=== PATIENT | female | born 1955 | race Caucasian/White ===

== ENCOUNTER → 2016-09-17 | Outpatient (CLI) | payer OTHER ==
--- NOTE | 2016-09-18 06:55 | MM ---
Reason for exam: additional evaluation requested from prior study. Last mammogram was performed 1 year ago. History: Patient is postmenopausal. Family history of breast cancer in mother at age 50. Took estrogen for 3 months beginning at age 49. Physical Findings: Nurse did not find any significant physical abnormalities on exam. MG Diagnostic Mammo w CAD [facility] Bilateral CC and MLO view(s) were taken. Prior study comparison: September 28, 2015, bilateral MG 3d diag mammo w/cad [facility]. December 23, 2012, bilateral digital screening mammo w/CAD. There are scattered fibroglandular densities. Finding: There are typically benign vascular calcifications in both breasts. There is a chronic nodularity in the right breast. These results were verbally communicated with the patient and result sheet given to the patient on 09/17/16. ASSESSMENT: Benign, BI-RAD 2 RECOMMENDATION: Routine screening mammogram of both breasts in 1 year. Manage on a clinical basis with regard to bilateral breast pain.
== END | disposition home or self-care (01) ==
LOC: RADMAMWWP 14:51
PROVIDERS: ATTEND Pediatrics
DX: N64.4 Mastodynia (principal)

== ENCOUNTER → 2017-01-14 | Outpatient (CLI) | payer OTHER ==
--- NOTE | 2017-01-14 17:14 | BD ---
EXAMINATION TYPE: MG DEXA axial skeleton. DATE OF EXAM: 01/14/2017 COMPARISON: NONE CLINICAL HISTORY: post menopausal Height: 5'4 1/2 Weight: 175 FRAX RISK QUESTIONS: Alcohol (3 or more units per day): no Family History (Parent hip fracture): no Glucocorticoids (More than 3mos): no (Ex: prednisone, prednisolone, methylprednisolone, dexamethasone, and hydrocortisone). History of Fracture in Adulthood: yes Secondary Osteoporosis: 1. Type 1 Diabetes: no 2. Hyperthyroidism: no 3. Menopause before 45: no 4. Malnutrition: no 5. Chronic liver disease: yes Rheumatoid Arthritis: no Current Tobacco Use: no RISK FACTORS HISTORY OF: Diet low in dairy products/other sources of calcium: Postmenopausal woman: Poor Health: MEDICATIONS: Thyroid Medications: Which medication: Levothyroxine How Lon years Additional Medications: blood pressure, seizures, Additional History: TIA EXAM MEASUREMENTS: Bone mineral densitometry was performed using the [employer] System. Bone mineral density as measured about the Lumbar spine is: ----- L1-L4(G/cm2): 1.105 T Score Values are as follows: ----- L2: -0.2 ----- L3: 0.0 ----- L4: -1.4 ----- L1-L4: -0.6 Bone mineral density about the R hip (g/cm2): 0.889 Bone mineral density about the L hip (g/cm2): 0.910 T Score values are as follows: -----R Neck: -1.1 -----L Neck: -0.9 -----R Total: -0.4 -----L Total: -0.4 IMPRESSION: Osteopenia (T Score between -2.5 and -1 as noted by T score values. There is slightly increased risk of fracture and the patient may be considered for treatment. Re-Screen 2-5 years. NOTE: T-SCORE=SD OF THE YOUNG ADULT MEAN.
--- NOTE | 2017-01-15 08:11 | WWHP ---
CHIEF COMPLAINT: Patient is here for her routine gynecologic exam. HPI: This is a 61-year-old G2, P2 with an LMP of 2006. The patient was seen last year for small amount of postmenopausal bleeding. She did have an endometrial biopsy which was benign and also had a pelvic ultrasound, which showed an endometrial thickness of 5 mm. She states she has not had any postmenopausal bleeding, but did have small spot of blood just prior to today's examination when she urinated. She noticed this just when she wiped. She denies any other vaginal bleeding this year. The patient is complaining of abdominal discomfort and "stomachache" for the last 2 months. She also had problems with constipation. PAST MEDICAL HISTORY: Hypothyroidism, TIA in the past, hepatitis C in the past, mild renal failure, seizure disorder in the past. Her new primary care physician will be Sherrell Read. She is also seeing Trang Wood NP who is working with Dr. Chris the GI specialist. MEDICATIONS: 1. Levothyroxine 75 mcg daily. 2. Clonidine 0.1 mg b.i.d. 3. Clonazepam 0.5 mg t.i.d. 4. Methadone 10 mg t.i.d. ALLERGIES: No known drug allergies. PAST SURGICAL HISTORY: Unchanged from the 2016 H&P. PAST EXTENSION PROFESSOR HISTORY: She has been menopausal since 2005 and has no history of STDs in the past. She did have an endometrial biopsy in 2016 for small spotting. SOCIAL HISTORY: She quit smoking in 2014 and denies any tobacco, alcohol, and drug use. She has been with her boyfriend since about 2000. She is not sexually active. FAMILY HISTORY: Unchanged from the 2016 H&P. REVIEW OF SYSTEMS: She has gained about 25 pounds over the past year and attributes much of this to a water retention. She denies respiratory or cardiac problems. GI: She has been having abdominal pain and constipation as above. PHYSICAL EXAM: Blood pressure 132/83. Height 5 feet 6 inches. Weight 175 pounds. Temperature 98.2, pulse 88. This is a well-developed, well-nourished white female who is alert and oriented x3 in no acute distress. HEENT is within normal limits. NECK: Supple without mass or thyromegaly. CHEST AND LUNGS: Clear to auscultation. HEART: Regular rate and rhythm. Breasts are without mass or discharge. Axillary exam is negative for adenopathy. BACK: Negative for CVA tenderness. ABDOMEN: Has 2+ bowel sounds, is soft and is some mild generalized abdominal tenderness with deep palpation. There is no rebound tenderness and there are no palpable abdominal masses. The abdomen appears mildly distended. PELVIC EXAM: External genitalia reveals moderate atrophy. There is a small scratch on the inner aspect of the left labia minora which appears slightly red consistent with dried blood. There is no active bleeding. This appears benign. There are no other lesions. Cervix and vagina reveals mild to moderate atrophy and there is no evidence of any blood in the vagina and no unusual discharge. The cervix appears normal. There is no cervical motion tenderness. The uterus is midposition, nongravid size and nontender. There are no palpable adnexal masses or tenderness. Rectovaginal exam is negative for mass or tenderness and is negative for occult blood. EXTREMITIES: Nontender. IMPRESSION: 1. A 61-year-old menopausal female with a drop of blood noted just prior to exam with wiping. This appears to be related to a small scratch on the inner labia which appears benign. There is currently no evidence of any vaginal or uterine bleeding. 2. Two month history of abdominal discomfort which may be associated with her constipation. I do not feel that this is gynecologic in nature. 3. The patient does have a history of extra hepatic biliary ductal dilatation with the common bile duct measuring 1.[address] scan done on 02/27/2016. PLAN: 1. Pap smear was deferred, since she had a normal one last year. 2. Self breast examination was discussed. 3. The patient had a benign mammogram on 09/17/2016. This will be repeated in one year. 4. Since I do not feel the abdominal pain is gynecologic in nature I have asked the patient to follow up with her GI doctor and nurse practitioner for follow-up. I have also asked them to discuss the CT scan findings consisting of common bile duct dilatation with Dr. Chris and Trang Wood. She will also discuss her problems with constipation and abdominal discomfort with them as well. 5. Bone density testing will be done today for screening. 6. She was advised to use Neosporin on the area of the scratched inner labia. She was also told to call if she notices any more bleeding. 7. She will return in one year. YESI
== END ==
LOC: WWCWWP 15:19
PROVIDERS: ATTEND Obstetrics & Gynecology
DX: M85.80 Other specified disorders of bone density and structure, unspecified site (principal)
CPT/HCPCS: 77080

== ENCOUNTER → 2017-01-14 | Outpatient (CLI) | payer OTHER ==
[2017-01-14 17:34] LABS: CH 27.9; CHCM 31.9; HCT 39.7 % (34.0-46.0); HDW 2.56; HGB 12.8 gm/dL (11.4-16.0); MCH 28.3 pg (25.0-35.0); MCHC 32.3 g/dL (31.0-37.0); MCV 87.9 fL (80.0-100.0); Mean Platelet Volume 7.2; RBC 4.52 m/uL (3.80-5.40); RDW 13.3 % (11.5-15.5); WBC 4.6 k/uL (3.8-10.6)
[2017-01-14 17:53] LABS: Bilirubin, Delta 0.4 mg/dL (0.0-0.2); Total Bilirubin 0.6 mg/dL (0.2-1.3); Total Protein 8.1 g/dL (6.3-8.2)
[2017-01-16 08:25] LABS: Hepatits C Virus RNA, Quant <12 IU/mL (<12); LOG HCV IU/mL <1.08 (<1.08)
== END ==
LOC: LABWHC1 16:57
PROVIDERS: ATTEND Physician Assistant
DX: B18.2 Chronic viral hepatitis C (principal)
CPT/HCPCS: 36415; 80076; 85027; 87522

== ENCOUNTER → 2017-07-31 | Outpatient (CLI) | payer OTHER ==
--- NOTE | 2017-07-31 09:40 | US ---
EXAMINATION TYPE: US abdomen complete DATE OF EXAM: 07/31/2017 COMPARISON: ct 2016 CLINICAL HISTORY: R10.12 LEFT UPPER QUADRANT PAIN. Pt fell dec 7 cracked ribs pain lug , also chronic hep c EXAM MEASUREMENTS: Liver Length: 15.4 cm Gallbladder Wall: 0.1 cm CBD: 0.8 cm Spleen: 9.2 cm Right Kidney: 9.2 x 3.1 x 3.4 cm Left Kidney: 9.4 x 2.8 x 3.5 cm Pancreas: Obscured by bowel gas Liver: wnl , no discrete masses are evident. Gallbladder: wnl Evidence for sonographic Chua's sign: no CBD: 0.8 cm, enlarged for the patient age. Spleen: wnl Right Kidney: No hydronephrosis or masses seen Left Kidney: lobular difficult to visualize , tried different pt positions Upper IVC: wnl Abd Aorta: wnl IMPRESSION: 1. Large common bile duct measuring 0.8 cm. Normal up to 0.6 cm. 2. Some limitation due to bowel gas and difficulty with patient positioning.
== END | disposition home or self-care (01) ==
LOC: RADUSWWP 08:04
PROVIDERS: ATTEND Internal Medicine Gastroenterology
DX: K83.8 Other specified diseases of biliary tract (principal); R14.3 Flatulence; B18.2 Chronic viral hepatitis C
CPT/HCPCS: 76700

== ENCOUNTER → 2017-08-18 | Outpatient (CLI) | payer OTHER ==
[2017-08-18 16:02] LABS: HCT 39.3 % (34.0-46.0); HGB 12.6 gm/dL (11.4-16.0); MCV 87.5 fL (80.0-100.0); Mean Platelet Volume 8.6; Platelet Count 162 k/uL (150-450); RDW 14.2 % (11.5-15.5); WBC 4.5 k/uL (3.8-10.6)
[2017-08-18 16:07] LABS: Albumin 4.4 g/dL (3.5-5.0); Bilirubin, Delta 0.4 mg/dL (0.0-0.2); Total Bilirubin 0.4 mg/dL (0.2-1.3); Total Protein 7.7 g/dL (6.3-8.2)
[2017-08-19 14:49] LABS: Hepatits C Virus RNA Not detected (Not detected); Hepatits C Virus RNA, Quant <12 IU/mL (<12); LOG HCV IU/mL <1.08 (<1.08)
== END ==
LOC: LABWHC1 15:41
PROVIDERS: ATTEND Physician Assistant
DX: B18.2 Chronic viral hepatitis C (principal)
CPT/HCPCS: 36415; 80076; 82105; 85027; 87522

== ENCOUNTER → 2017-11-19 | Outpatient (CLI) | payer OTHER ==
[2017-11-19 12:45] LABS: Albumin 4.2 g/dL (3.5-5.0); Calcium 9.3 mg/dL (8.4-10.2); Potassium 5.3 mmol/L (3.5-5.1); Total Bilirubin 0.4 mg/dL (0.2-1.3); Total Protein 7.4 g/dL (6.3-8.2)
[2017-11-19 13:03] LABS: HCT 36.1 % (34.0-46.0); MCH 27.9 pg (25.0-35.0); MCHC 33.2 g/dL (31.0-37.0); MCV 84.1 fL (80.0-100.0); Mean Platelet Volume 7.4; Platelet Count 173 k/uL (150-450); RBC 4.29 m/uL (3.80-5.40); RDW 12.6 % (11.5-15.5); WBC 4.6 k/uL (3.8-10.6)
== END | disposition home or self-care (01) ==
LOC: LABWHC1 11:50
PROVIDERS: ATTEND Family Medicine
DX: I15.9 Secondary hypertension, unspecified (principal); F41.9 Anxiety disorder, unspecified; E03.9 Hypothyroidism, unspecified
CPT/HCPCS: 36415; 80053; 80061; 84443; 85027

== ENCOUNTER → 2017-11-28 | Outpatient (CLI) | payer OTHER ==
--- NOTE | 2017-11-28 08:48 | MR ---
EXAMINATION TYPE: MR lumbar spine wo con DATE OF EXAM: 11/28/2017 COMPARISON: CT abdomen and pelvis dated 02-27-2016. HISTORY: Disc Degeneration per order and Pain for 10 years per patient TECHNIQUE: Multiplanar, multisequence imaging of the lumbar spine is performed without IV contrast. FINDINGS: Sagittal images of the lumbar spine redemonstrate chronic moderate compression fracture L1 level. There is slight posterior retropulsion of the superior posterior aspect of vertebra into spina l canal on sagittal image [address] Less prominent scoliotic curvature is seen on MRI v ersus CT. Multilevel disc desiccation is present. There is fairly moderate disc space narrowing L5-S1 level with vacuum disc phenomenon and Modic type II degenerative change with heterogeneous increased T1 and T2 signal. Multilevel posterior disc herniations are seen on sagittal images effacing anterio r thecal sac There is mild to moderate multilevel anterior spurring. The conus medullaris is slightly lower in position ending at superior L2 level without suspicious abnormal signal or clumping of lumb osacral nerve roots. Axial images at T12-L1 level shows mild broad disc bulge mildly effacing anterior thecal sac and axia l image 28, bilateral neural foramina are patent. There is more prominent central canal effacement du e to posterior displacement superior L1 vertebra at level of moderate compression fracture axial imag e 26 redemonstrated. Axial images at L1-L2 level show mild broad disc bulge minimally effacing anterior thecal sac, bilate ral neural foramina are patent. Axial images at L2-L3 level show mild to moderate broad disc bulge and mild facet degenerative change s bilaterally. There is effacement of the anterior posterior lateral thecal sac on axial image 18. Bi lateral neural foramina are patent. Axial images at L3-L4 level show broad-based posterior disc protrusion effacing anterior thecal sac w ith mild to moderate facet degenerative changes and ligament flavum hypertrophy effacing posterior la teral thecal sac. There is mild left-sided anterior inferior neural foraminal narrowing. Right-sided neural foramen is patent. Axial images at L4-L5 level show moderate facet degenerative changes and ligamentum flavum hypertroph y effacing posterior lateral thecal sac. There is broad-based posterior disc protrusion effacing ante rior thecal sac. There is mild bilateral anterior inferior neural foraminal narrowing at this level i dentified. Axial images at L5-S1 level show mild to moderate facet degenerative changes bilaterally. There is br oad-based posterior disc protrusion seen. Spinal canal is minimally effaced. There is mild bilateral anterior inferior neural foraminal narrowing noted. No suspicious retroperitoneal findings are seen. IMPRESSION: Chronic moderate compression type fracture L1 level. Multilevel degenerative changes in t he lumbar spine as detailed above
== END | disposition home or self-care (01) ==
LOC: RADMRIMAIN 07:44
PROVIDERS: ATTEND Family Medicine
DX: M48.07 Spinal stenosis, lumbosacral region (principal); M99.73 Connective tissue and disc stenosis of intervertebral foramina of lumbar region; M51.27 Other intervertebral disc displacement, lumbosacral region; M47.816 Spondylosis without myelopathy or radiculopathy, lumbar region; M48.56XA Collapsed vertebra, not elsewhere classified, lumbar region, initial encounter for fracture
CPT/HCPCS: 72148

== ENCOUNTER → 2017-12-08 | Outpatient (CLI) | payer OTHER | END | disposition home or self-care (01) | LOC: RADBDWWP 13:22 | PROVIDERS: ATTEND Family Medicine | DX: Z53.9 Procedure and treatment not carried out, unspecified reason (principal) ==

== ENCOUNTER 2018-02-19 16:31 | Emergency (ER) | payer OTHER ==
[2018-02-19 18:05] VITALS: TEMP 98.3
--- NOTE | 2018-02-19 18:55 | ED ---
General Adult HPI - General Chief complaint: Extremity Injury, Lower Stated complaint: Rt Knee swelling Time Seen by Provider: 02/19/18 18:15 Source: patient Mode of arrival: wheelchair Limitations: no limitations - History of Present Illness Initial comments: This a 63-year-old female with past medical history of CVA on aspirin and seizure disorder, hypertension who presents today for chief complaint of fall times 3 days ago. Patient states that Friday she was carrying some heavy boxes up stairs when she felt as though her right knee gave out, she fell onto the anterior right knee. Patient denies any posterior or anterior dislocation. Patient really noticed pain in her right knee and swelling. However she just try to walk it off, hoping that better. She put ice on the knee. However she had difficulty ambulating and weightbearing secondary to pain. Patient denies any chest pain, shortness of breath, seizures, dizziness or palpitations prior to falling. And states it was due to her knee giving out. Patient denies any posterior dislocation, numbness, tingling, paresthesias , loss sensation, coolness of the extremity. Patient presented to the emergency department today because she could no longer tolerate the pain and was having difficulty ambulating since the injury. Patient has not taken any pain medication for the knee pain, however she is only taking her daily aspirin. Patient denies any recent fever, chills, shortness of breath, chest pain, back pain, abdominal pain, nausea or vomiting, numbness or tingling, dysuria or hematuria, constipation or diarrhea, headaches or visual changes, or any other complaints. - Related Data Home Medications Medication Instructions Recorded Confirmed L.acidoph,Paracasei, B.lactis 1 tab PO DAILY 12/21/15 07/30/17 [Probiotic] cloNIDine HCL [Catapres] 0.1 mg PO BID 12/21/15 07/30/17 Levothyroxine Sodium [Synthroid] 75 mcg PO DAILY 01/08/16 07/30/17 Multivitamins, Thera [Multivitamin] 1 tab PO DAILY 01/08/16 07/30/17 hydrOXYzine HCL [Atarax] 25 mg PO DIRECTED PRN 01/08/16 07/30/17 clonazePAM [KlonoPIN] 1 mg PO TID 03/03/17 07/30/17 Methadone HCl [Methadone Intensol] 72 mg PO DAILY 07/30/17 Potassium Chloride [K-Tab ER] 20 meq PO DAILY 07/30/17 Sertraline [Zoloft] 100 mg PO DAILY 07/30/17 Spironolactone [Aldactone] 25 mg PO DAILY 07/30/17 Previous Rx's Medication Instructions Recorded Ibuprofen [Motrin] 600 mg PO Q8HR PRN 7 Days #21 tab 02/19/18 Allergies Allergy/AdvReac Type Severity Reaction Status Date / Time No Known Allergies Allergy Verified 07/30/17 09:38 Review of Systems ROS Statement: Those systems with pertinent positive or pertinent negative responses have been documented in the HPI. ROS Other: All systems not noted in ROS Statement are negative. Constitutional: Denies: fever, chills ENT: Denies: ear pain, throat pain Respiratory: Denies: cough, dyspnea, hemoptysis Cardiovascular: Denies: chest pain, palpitations Endocrine: Denies: fatigue Gastrointestinal: Denies: abdominal pain, nausea, vomiting Genitourinary: Denies: urgency, dysuria, frequency Musculoskeletal: Denies: back pain Skin: Denies: rash, lesions Neurological: Denies: headache, weakness, numbness, paresthesias Past Medical History Past Medical History: CVA/TIA, GERD/Reflux, Hypertension, Memory Impairment, Thyroid Disorder Additional Past Medical History / Comment(s): STATES HAD HEP C-"TOOK SOME MEDICATION AND NO LONGER HAS". TINNITUS. TIA 2012. CHRONIC BACK PAIN. 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 COLONOSCOPY. BILAT CATARACT SX Past Anesthesia/Blood Transfusion Reactions: Blood Transfusion Reaction Additional Past Anesthesia/Blood Transfusion Reaction / Comment(s): contracted hep c from blood transfusion 1975 Past Psychological History: Anxiety, Depression Smoking Status: Former smoker - Past Family History Mother Family Medical History: Cancer General Exam - General Exam Comments Initial Comments: General: The patient is awake and alert, in no distress, and does not appear acutely ill. Eye: Pupils are equal, round and reactive to light, extra-ocular movements are intact. No nystagmus. There is normal conjunctiva bilaterally. No signs of icterus. Ears, nose, mouth and throat: There are moist mucous membranes and no oral lesions. Neck: The neck is supple, there is no tenderness or JVD. Cardiovascular: There is a regular rate and rhythm. No murmur, rub or gallop is appreciated. Respiratory: Lungs are clear to auscultation, respirations are non-labored, breath sounds are equal. No wheezes, stridor, rales, or rhonchi. Musculoskeletal: Significant swelling of the right knee in comparison with the left, no overlying erythema, ecchymosis or abrasion. Patient is able to fully active and passively range the right knee however she does complain of mild pain with both passive and active range of motion, no evidence of clicking or crepitus. Patient admits to tenderness to palpation over the anterior aspect of the knee. Strength of knees bilaterally 5/5. Extensor mechanism intact bilaterally. Full sensation of LE equally bilaterally. Pulses equal bilaterally 2+ DP. No increased laxity noted upon anterior or posterior drawer test, or varus/valgus testing. No calf pain. (-) Irvin. There is no calf, foot or below the knee swelling of the right leg and comparison with the left. Neurological: A&O x 3. CN II-XII intact, There are no obvious motor or sensory deficits. Coordination appears grossly intact. Speech is normal. Skin: Skin is warm and dry and no rashes or lesions are noted. Psychiatric: Cooperative, appropriate mood & affect, normal judgment. Limitations: no limitations Course Vital Signs 02/19/18 02/19/18 18:02 20:44 Temperature 98.3 F Pulse Rate 64 65 Respiratory 18 20 Rate Blood Pressure 121/67 166/77 O2 Sat by Pulse 97 98 Oximetry Medical Decision Making - Medical Decision Making X-ray of the right knee was obtained revealing no acute dislocation or fracture , or joint effusion. There was mild osteoarthritis of the right knee. Given the history of trauma & physical examination no overlying erythema or excessive pain with passive, active range of motion, patient is afebrile and patient appearing comfortable and nontoxic I have low suspicion for septic joint. At this time given the patient's history I do feel that this could be a possible ligamentous injury, that needs further evaluation and treatment by orthopedics. Patient was placed in a knee immobilizer. In discharge with prescription for ibuprofen 600 for pain management as needed as well as orthopedist surgery follow-up with Dr. Helms in one to 2 days. The case was discussed in detail with Dr. Easton who agrees with this plan. Patient agreed with plan and was stable for discharge. She stated she was ready to go home. Vital signs stable upon discharge. Disposition Clinical Impression: Right knee pain Disposition: HOME SELF-CARE Instructions: Knee Sprain (ED) Additional Instructions: Please use medication as discussed. Please follow-up with orthjopedic surgery as discussed in 1-2 days. Please return to emergency room if the symptoms increase or worsen or for any other concerns. Prescriptions: Ibuprofen [Motrin] 600 mg PO Q8HR PRN 7 Days #21 tab PRN Reason: Pain Is patient prescribed a controlled substance at d/c from ED?: No Referrals: Jessica Pond MD [Primary Care Provider] - 1-2 days Keyon Reece MD [STAFF PHYSICIAN] - 1-2 days Time of Disposition: 20:17
[2018-02-19] MEDS ORDERED: HYDROcodone/APAP 5-325MG 1 EACH TAB PO STA (18:59)
--- NOTE | 2018-02-19 19:38 | XR ---
EXAMINATION TYPE: XR knee complete RT DATE OF EXAM: 02/19/2018 COMPARISON: NONE HISTORY: Fall. Knee pain. TECHNIQUE: 3 views FINDINGS: There is some narrowing of the medial joint space. There is no fracture nor dislocation. Th ere are small knee joint effusion. IMPRESSION: Mild osteoarthritis. No fracture.
[2018-02-19 20:45] VITALS: BP 166/77; PULSE 65; RESP 20
== END 2018-02-19 20:45 | disposition home or self-care (01) ==
LOC: EC 16:31
DX: M25.561 Pain in right knee (principal); I10 Essential (primary) hypertension; E07.9 Disorder of thyroid, unspecified; F41.9 Anxiety disorder, unspecified; F32.9 Major depressive disorder, single episode, unspecified; Z86.73 Personal history of transient ischemic attack (TIA), and cerebral infarction without residual deficits; Z98.890 Other specified postprocedural states; Z79.899 Other long term (current) drug therapy; W10.9XXA Fall (on) (from) unspecified stairs and steps, initial encounter; Y92.89 Other specified places as the place of occurrence of the external cause; Y93.89 Activity, other specified
CPT/HCPCS: 99283

== ENCOUNTER → 2018-05-08 | Outpatient (CLI) | payer OTHER ==
[2018-05-08 16:47] LABS: Basophils % (A) 0 %; Eosinophils # (A) 0.2 k/uL (0-0.7); Eosinophils % (A) 2 %; HCT 30.6 % (34.0-46.0); HGB 9.8 gm/dL (11.4-16.0); Hypochromasia Slight; Lymphocytes # (A) 1.2 k/uL (1.0-4.8); Lymphocytes % (A) 12 %; MCH 25.2 pg (25.0-35.0); MCHC 32.1 g/dL (31.0-37.0); MCV 78.7 fL (80.0-100.0); Mean Platelet Volume 6.7; Monocytes # (A) 0.7 k/uL (0-1.0); Monocytes % (A) 7 %; Neutrophils # (A) 7.8 k/uL (1.3-7.7); Neutrophils % (A) 77 %; Platelet Count 542 k/uL (150-450); RBC 3.88 m/uL (3.80-5.40); RDW 14.4 % (11.5-15.5); WBC 10.1 k/uL (3.8-10.6)
[2018-05-08 17:02] LABS: Albumin 3.3 g/dL (3.5-5.0); Calcium 9.2 mg/dL (8.4-10.2); Potassium 3.8 mmol/L (3.5-5.1)
[2018-05-08 17:20] LABS: C Reactive Protein 188.4 mg/L (<10.0)
[2018-05-08 18:08] LABS: Erythrocyte Sedimentation Rate 115 mm/hr (0-20)
[2018-05-09 05:07] LABS: Hemoglobin A1C 5.6 % (4.0-6.0)
== END ==
LOC: LABWHC1 16:13
PROVIDERS: ATTEND Orthopaedic Surgery
DX: Z01.812 Encounter for preprocedural laboratory examination (principal); B99.9 Unspecified infectious disease
CPT/HCPCS: 36415; 80048; 82040; 83036; 85025; 85652; 86140; 87070

== ENCOUNTER → 2018-06-10 | Outpatient (CLI) | payer OTHER | END | disposition home or self-care (01) | LOC: LABWHC1 17:19 | PROVIDERS: ATTEND Orthopaedic Surgery | DX: Z01.812 Encounter for preprocedural laboratory examination (principal); Z01.818 Encounter for other preprocedural examination; B99.9 Unspecified infectious disease | CPT/HCPCS: 36415; 87070; 93005 ==

== ENCOUNTER → 2018-06-12 | Outpatient (CLI) | payer OTHER ==
[2018-06-12 13:25] LABS: Basophils % (A) 0 %; Eosinophils # (A) 0.2 k/uL (0-0.7); Eosinophils % (A) 2 %; HCT 28.1 % (34.0-46.0); HGB 8.5 gm/dL (11.4-16.0); Hypochromasia Marked; Lymphocytes # (A) 1.1 k/uL (1.0-4.8); Lymphocytes % (A) 16 %; MCH 24.2 pg (25.0-35.0); MCHC 30.2 g/dL (31.0-37.0); MCV 80.1 fL (80.0-100.0); Mean Platelet Volume 7.1; Monocytes # (A) 0.7 k/uL (0-1.0); Monocytes % (A) 10 %; Neutrophils % (A) 71 %; Platelet Count 505 k/uL (150-450); RBC 3.51 m/uL (3.80-5.40); RDW 15.1 % (11.5-15.5); WBC 7.1 k/uL (3.8-10.6)
[2018-06-12 14:42] LABS: Erythrocyte Sedimentation Rate 112 mm/hr (0-20)
[2018-06-12 19:25] LABS: Albumin 3.3 g/dL (3.80-4.90); Anion Gap 10.9 mmol/L (4.00-12.00); C Reactive Protein 29.1 mg/dL (0.0-0.8); Calcium 8.6 mg/dL (8.7-10.3); Carbon Dioxide 23.1 mmol/L (21.6-31.8); Potassium 5.3 mmol/L (3.5-5.5)
[2018-06-12 22:43] LABS: Hemoglobin A1C 5.7 % (4.0-6.0)
== END | disposition home or self-care (01) ==
LOC: LABWHC1 12:08
PROVIDERS: ATTEND Orthopaedic Surgery
DX: Z01.812 Encounter for preprocedural laboratory examination (principal); B99.9 Unspecified infectious disease
CPT/HCPCS: 36415; 80048; 82040; 83036; 85025; 85652; 86140

== ENCOUNTER → 2018-08-10 | Outpatient (CLI) | payer OTHER ==
[2018-08-10 16:14] LABS: Anisocytosis Slight; Basophils % (A) 0 %; Eosinophils # (A) 0.1 k/uL (0-0.7); Eosinophils % (A) 2 %; HCT 37.7 % (34.0-46.0); Lymphocytes # (A) 1.4 k/uL (1.0-4.8); Lymphocytes % (A) 25 %; MCH 28.2 pg (25.0-35.0); Mean Platelet Volume 8.1; Monocytes # (A) 0.4 k/uL (0-1.0); Monocytes % (A) 7 %; Neutrophils # (A) 3.7 k/uL (1.3-7.7); Neutrophils % (A) 63 %; RBC 4.41 m/uL (3.80-5.40); RDW 16.8 % (11.5-15.5); WBC 5.8 k/uL (3.8-10.6)
[2018-08-10 16:19] LABS: HGB 12.4 gm/dL (11.4-16.0); MCV 85.5 fL (80.0-100.0); Platelet Count 195 k/uL (150-450)
[2018-08-10 19:08] LABS: Erythrocyte Sedimentation Rate 42 mm/hr (0-20)
[2018-08-11 05:14] LABS: AST 23 U/L (13-35); Albumin/Globulin Ratio 1.57 (1.20-2.10); Alkaline Phosphatase 74 U/L (41-126); Calcium 9.7 mg/dL (8.7-10.3); Carbon Dioxide 27.2 mmol/L (21.6-31.8); Chloride 102 mmol/L (96-109); Globulin 2.8 g/dL (1.6-3.3); Glucose 85 mg/dL (70-110); Potassium 3.6 mmol/L (3.5-5.5); Sodium 137 mmol/L (135-145); Total Bilirubin 0.2 mg/dL (0.3-1.2); Total Protein 7.2 g/dL (6.2-8.2)
[2018-08-11 06:00] LABS: ALT <8 U/L (8-44); C Reactive Protein <0.4 mg/dL (0.0-0.8)
== END | disposition home or self-care (01) ==
LOC: LABWHC1 15:34
PROVIDERS: ATTEND Internal Medicine Infectious Disease
DX: M00.9 Pyogenic arthritis, unspecified (principal); M71.161 Other infective bursitis, right knee; A49.01 Methicillin susceptible Staphylococcus aureus infection, unspecified site; G40.909 Epilepsy, unspecified, not intractable, without status epilepticus
CPT/HCPCS: 36415; 80053; 80177; 85025; 85652; 86140

== ENCOUNTER → 2018-08-25 | Outpatient (CLI) | payer OTHER ==
[2018-08-25 16:20] LABS: Basophils % (A) 0 %; Eosinophils # (A) 0.1 k/uL (0-0.7); Eosinophils % (A) 2 %; HCT 40.4 % (34.0-46.0); HGB 12.7 gm/dL (11.4-16.0); Lymphocytes # (A) 1.7 k/uL (1.0-4.8); Lymphocytes % (A) 33 %; MCH 27.1 pg (25.0-35.0); MCHC 31.4 g/dL (31.0-37.0); MCV 86.4 fL (80.0-100.0); Mean Platelet Volume 7.5; Monocytes # (A) 0.4 k/uL (0-1.0); Monocytes % (A) 7 %; Neutrophils # (A) 2.9 k/uL (1.3-7.7); Neutrophils % (A) 56 %; Platelet Count 232 k/uL (150-450); RBC 4.67 m/uL (3.80-5.40); RDW 15.4 % (11.5-15.5); WBC 5.1 k/uL (3.8-10.6)
[2018-08-25 19:21] LABS: Erythrocyte Sedimentation Rate 25 mm/hr (0-20)
[2018-08-26 02:14] LABS: ALT <8 U/L (8-44); AST 25 U/L (13-35); Alkaline Phosphatase 85 U/L (41-126); C Reactive Protein <0.4 mg/dL (0.0-0.8); Carbon Dioxide 23.5 mmol/L (21.6-31.8); Chloride 103 mmol/L (96-109); Globulin 2.8 g/dL (1.6-3.3); Glucose 78 mg/dL (70-110); Potassium 3.6 mmol/L (3.5-5.5); Sodium 141 mmol/L (135-145); Total Bilirubin 0.1 mg/dL (0.3-1.2)
== END ==
LOC: LABWHC1 14:26
PROVIDERS: ATTEND Internal Medicine Infectious Disease
DX: M00.9 Pyogenic arthritis, unspecified (principal); M71.161 Other infective bursitis, right knee; A49.01 Methicillin susceptible Staphylococcus aureus infection, unspecified site
CPT/HCPCS: 36415; 80053; 85025; 85652; 86140

== ENCOUNTER → 2018-09-07 | Outpatient (CLI) | payer OTHER ==
[2018-09-07 17:10] LABS: Basophils % (A) 1 %; Eosinophils # (A) 0.3 k/uL (0-0.7); Eosinophils % (A) 4 %; HCT 39.1 % (34.0-46.0); HGB 12.2 gm/dL (11.4-16.0); Lymphocytes # (A) 2.1 k/uL (1.0-4.8); Lymphocytes % (A) 32 %; MCH 27.5 pg (25.0-35.0); MCHC 31.3 g/dL (31.0-37.0); MCV 87.7 fL (80.0-100.0); Mean Platelet Volume 8.5; Monocytes # (A) 0.4 k/uL (0-1.0); Monocytes % (A) 7 %; Neutrophils # (A) 3.6 k/uL (1.3-7.7); Neutrophils % (A) 55 %; Platelet Count 193 k/uL (150-450); RBC 4.45 m/uL (3.80-5.40); RDW 14.9 % (11.5-15.5); WBC 6.6 k/uL (3.8-10.6)
[2018-09-07 18:06] LABS: Erythrocyte Sedimentation Rate 17 mm/hr (0-20)
[2018-09-08 01:45] LABS: ALT <8 U/L (8-44); AST 17 U/L (13-35); Albumin/Globulin Ratio 1.62 (1.60-3.17); Alkaline Phosphatase 81 U/L (41-126); C Reactive Protein <0.4 mg/dL (0.0-0.8); Calcium 8.7 mg/dL (8.7-10.3); Carbon Dioxide 23.5 mmol/L (21.6-31.8); Chloride 109 mmol/L (96-109); Globulin 2.6 g/dL (1.6-3.3); Glucose 86 mg/dL (70-110); Sodium 142 mmol/L (135-145); Total Bilirubin 0.1 mg/dL (0.3-1.2); Total Protein 6.8 g/dL (6.2-8.2)
== END | disposition home or self-care (01) ==
LOC: LABWHC1 13:14
PROVIDERS: ATTEND Internal Medicine Infectious Disease
DX: M00.9 Pyogenic arthritis, unspecified (principal); M71.161 Other infective bursitis, right knee; A49.01 Methicillin susceptible Staphylococcus aureus infection, unspecified site
CPT/HCPCS: 36415; 80053; 85025; 85652; 86140

== ENCOUNTER → 2018-09-25 | Outpatient (CLI) | payer OTHER ==
[2018-09-25 15:14] LABS: Basophils % (A) 1 %; Eosinophils # (A) 0.2 k/uL (0-0.7); Eosinophils % (A) 9 %; HCT 37.4 % (34.0-46.0); HGB 12.6 gm/dL (11.4-16.0); Lymphocytes # (A) 0.8 k/uL (1.0-4.8); Lymphocytes % (A) 31 %; MCH 29.1 pg (25.0-35.0); MCHC 33.7 g/dL (31.0-37.0); MCV 86.2 fL (80.0-100.0); Mean Platelet Volume 6.7; Monocytes # (A) 0.3 k/uL (0-1.0); Monocytes % (A) 10 %; Neutrophils # (A) 1.2 k/uL (1.3-7.7); Neutrophils % (A) 46 %; Platelet Count 191 k/uL (150-450); RBC 4.33 m/uL (3.80-5.40); RDW 13.5 % (11.5-15.5); WBC 2.6 k/uL (3.8-10.6)
[2018-09-25 15:56] LABS: Erythrocyte Sedimentation Rate 20 mm/hr (0-20)
[2018-09-26 00:42] LABS: Anion Gap 11.8 mmol/L (4.00-12.00); C Reactive Protein 1.6 mg/dL (0.0-0.8); Calcium 9.7 mg/dL (8.7-10.3); Carbon Dioxide 24.2 mmol/L (21.6-31.8); Potassium 4.9 mmol/L (3.5-5.5)
== END | disposition home or self-care (01) ==
LOC: LABWHC1 14:41
PROVIDERS: ATTEND Internal Medicine Infectious Disease
DX: M00.061 Staphylococcal arthritis, right knee (principal); B95.61 Methicillin susceptible Staphylococcus aureus infection as the cause of diseases classified elsewhere
CPT/HCPCS: 36415; 80048; 85025; 85652; 86140

== ENCOUNTER → 2018-10-12 | Outpatient (CLI) | payer OTHER ==
[2018-10-12 17:24] LABS: Basophils % (A) 1 %; Eosinophils # (A) 0.3 k/uL (0-0.7); Eosinophils % (A) 8 %; HCT 39.3 % (34.0-46.0); HGB 12.7 gm/dL (11.4-16.0); Lymphocytes # (A) 1.6 k/uL (1.0-4.8); Lymphocytes % (A) 40 %; MCHC 32.4 g/dL (31.0-37.0); MCV 86.4 fL (80.0-100.0); Mean Platelet Volume 7.2; Monocytes # (A) 0.3 k/uL (0-1.0); Monocytes % (A) 8 %; Neutrophils # (A) 1.5 k/uL (1.3-7.7); Neutrophils % (A) 39 %; Platelet Count 185 k/uL (150-450); RBC 4.55 m/uL (3.80-5.40); WBC 3.9 k/uL (3.8-10.6)
[2018-10-12 20:53] LABS: Erythrocyte Sedimentation Rate 29 mm/hr (0-20)
[2018-10-13 02:27] LABS: Albumin 4.1 g/dL (3.80-4.90); Albumin/Globulin Ratio 1.46 (1.60-3.17); Anion Gap 10.8 mmol/L (4.00-12.00); C Reactive Protein 4.9 mg/dL (0.0-0.8); Calcium 9.3 mg/dL (8.7-10.3); Carbon Dioxide 24.2 mmol/L (21.6-31.8); Globulin 2.8 g/dL (1.6-3.3); Potassium 4.6 mmol/L (3.5-5.5); Total Bilirubin 0.1 mg/dL (0.3-1.2); Total Protein 6.9 g/dL (6.2-8.2)
== END | disposition home or self-care (01) ==
LOC: LABWHC1 16:30
PROVIDERS: ATTEND Internal Medicine Infectious Disease
DX: M00.9 Pyogenic arthritis, unspecified (principal); M71.161 Other infective bursitis, right knee; A49.01 Methicillin susceptible Staphylococcus aureus infection, unspecified site
CPT/HCPCS: 36415; 80053; 85025; 85652; 86140

== ENCOUNTER → 2018-10-21 | Outpatient (CLI) | payer OTHER | END | disposition home or self-care (01) | LOC: LABWHC1 16:30 | PROVIDERS: ATTEND Internal Medicine Infectious Disease | DX: M00.9 Pyogenic arthritis, unspecified (principal); M71.161 Other infective bursitis, right knee; A49.01 Methicillin susceptible Staphylococcus aureus infection, unspecified site | CPT/HCPCS: 36415; 85652 ==

== ENCOUNTER → 2018-11-02 | Outpatient (CLI) | payer OTHER ==
[2018-11-02 16:37] LABS: Basophils % (A) 1 %; Eosinophils # (A) 0.2 k/uL (0-0.7); Eosinophils % (A) 4 %; HCT 37.3 % (34.0-46.0); HGB 12.2 gm/dL (11.4-16.0); Lymphocytes # (A) 1.9 k/uL (1.0-4.8); Lymphocytes % (A) 39 %; MCH 27.7 pg (25.0-35.0); MCHC 32.8 g/dL (31.0-37.0); MCV 84.5 fL (80.0-100.0); Mean Platelet Volume 7.9; Monocytes # (A) 0.3 k/uL (0-1.0); Monocytes % (A) 6 %; Neutrophils # (A) 2.4 k/uL (1.3-7.7); Neutrophils % (A) 48 %; Platelet Count 216 k/uL (150-450); RBC 4.42 m/uL (3.80-5.40); RDW 12.9 % (11.5-15.5)
[2018-11-02 19:51] LABS: Erythrocyte Sedimentation Rate 25 mm/hr (0-20)
== END | disposition home or self-care (01) ==
LOC: LABWHC1 15:50
PROVIDERS: ATTEND Internal Medicine Infectious Disease
DX: A49.01 Methicillin susceptible Staphylococcus aureus infection, unspecified site (principal); M71.161 Other infective bursitis, right knee; M00.9 Pyogenic arthritis, unspecified
CPT/HCPCS: 36415; 85025; 85652; 86140

== ENCOUNTER → 2018-11-10 | Outpatient (CLI) | payer OTHER ==
[2018-11-10 16:45] LABS: Basophils # (A) 0.1 k/uL (0-0.2); Basophils % (A) 1 %; Eosinophils # (A) 0.3 k/uL (0-0.7); Eosinophils % (A) 4 %; HCT 43.1 % (34.0-46.0); HGB 13.8 gm/dL (11.4-16.0); Lymphocytes # (A) 2.9 k/uL (1.0-4.8); Lymphocytes % (A) 40 %; MCH 27.3 pg (25.0-35.0); MCV 85.1 fL (80.0-100.0); Mean Platelet Volume 7.3; Monocytes # (A) 0.5 k/uL (0-1.0); Monocytes % (A) 7 %; Neutrophils # (A) 3.2 k/uL (1.3-7.7); Neutrophils % (A) 45 %; Platelet Count 258 k/uL (150-450); RBC 5.06 m/uL (3.80-5.40); RDW 13.2 % (11.5-15.5); WBC 7.1 k/uL (3.8-10.6)
[2018-11-10 16:51] LABS: Albumin 4.8 g/dL (3.5-5.0); Anion Gap 13 mmol/L; Blood Urea Nitrogen 20 mg/dL (7-17); Calcium 10.1 mg/dL (8.4-10.2); Carbon Dioxide 25 mmol/L (22-30); Chloride 103 mmol/L (98-107); Glucose 74 mg/dL (74-99); Potassium 4.2 mmol/L (3.5-5.1); Sodium 141 mmol/L (137-145)
[2018-11-10 16:51] LABS: Appearance,Urine Clear (Clear); Bilirubin,Urine Negative (Negative); Blood,Urine Negative (Negative); Color,Urine Yellow; Glucose,Urine (UA) Negative (Negative); Ketones,Urine Negative (Negative); Leukocyte Esterase,Urine Small (Negative); Mucus,Urine Rare /hpf; Nitrite,Urine Negative (Negative); PH, Urine 6.5 (5.0-8.0); Protein,Urine Negative (Negative); RBC,Urine 1 /hpf (0-5); Specific Gravity,Urine 1.018 (1.001-1.035); Squamous Epithelial Cell,Urine <1 /hpf (0-4); Urobilinogen,Urine <2.0 mg/dL (<2.0); WBC,Urine 4 /hpf (0-5)
[2018-11-10 16:52] LABS: Calcium 10.1 mg/dL (8.4-10.2); Total Bilirubin 0.4 mg/dL (0.2-1.3); Total Protein 8.5 g/dL (6.3-8.2)
[2018-11-11 01:52] LABS: Hemoglobin A1C 5.4 % (4.0-6.0)
== END | disposition home or self-care (01) ==
LOC: LABWHC1 15:48
PROVIDERS: ATTEND Orthopaedic Surgery
DX: Z01.812 Encounter for preprocedural laboratory examination (principal); F19.10 Other psychoactive substance abuse, uncomplicated
CPT/HCPCS: 36415; 80048; 81001; 82040; 82247; 82310; 83036; 84075; 84155; 84450; 84460; 85025; 86780; 87070; 87340

== ENCOUNTER → 2020-01-04 | Outpatient (CLI) | payer MEDICARE, OTHER ==
--- NOTE | 2020-01-06 08:02 | MM ---
Reason for exam: screening (asymptomatic). Last mammogram was performed 3 years and 4 months ago. History: Patient is postmenopausal. Family history of breast cancer in mother at age 50. Took estrogen for 3 months beginning at age 49. Physical Findings: A clinical breast exam by your physician is recommended on an annual basis and results should be correlated with mammographic findings. MG Screening Mammo w CAD Bilateral CC and MLO view(s) were taken. Prior study comparison: September 17, 2016, bilateral MG diagnostic mammo w CAD [facility]. September 28, 2015, bilateral MG 3d diag mammo w/cad [facility]. The breast tissue is heterogeneously dense. This may lower the sensitivity of mammography. Finding: There are vascular, diffuse/scattered calcifications in both breasts. There is a chronic nodularity in the right breast. There is no discrete abnormality. ASSESSMENT: Benign, BI-RAD 2 RECOMMENDATION: Routine screening mammogram of both breasts in 1 year.
== END | disposition home or self-care (01) ==
LOC: RADMAMWWP 15:26
PROVIDERS: ATTEND Family Medicine
DX: Z12.31 Encounter for screening mammogram for malignant neoplasm of breast (principal)
CPT/HCPCS: 77067

== ENCOUNTER → 2020-04-12 | Outpatient (CLI) | payer MEDICARE, OTHER ==
--- NOTE | 2020-04-12 15:23 | US ---
EXAMINATION TYPE: US kidneys/renal and bladder DATE OF EXAM: 04/12/2020 COMPARISON: None CLINICAL HISTORY: 65-year-old female N28.9 Disorder of kidney and ureter, unspecified. Decreased petty l function TECHNIQUE: Multiple sonographic images of the kidneys and bladder are obtained. FINDINGS: EXAM MEASUREMENTS: Right Kidney: 8.7 x 4.1 x 2.7 cm Left Kidney: 8.9 x 4.2 x 3.7 cm Post Void Residual Volume: 0 mL Right Kidney: No hydronephrosis or masses seen ; prominent renal pelvis vs. extra renal pelvis is not ed; bilateral renal size is smaller than normal range of 9-12cm. Left Kidney: No hydronephrosis or masses seen . Bladder: partially distended limiting evaluation. Bilateral Jets seen: not seen after 3 minute observation Normal Post Void Residual: yes IMPRESSION: Somewhat small size of the kidneys may reflect underlying chronic medical renal disease. Either mild pelviectasis or extrarenal pelvis right kidney. No calyceal dilatation to suggest hydronephrosis.
== END | disposition home or self-care (01) ==
LOC: RADUSWWP 12:26
PROVIDERS: ATTEND Family Medicine
DX: N28.9 Disorder of kidney and ureter, unspecified (principal)
CPT/HCPCS: 76770

== ENCOUNTER 2021-01-19 18:55 | Emergency (ER) | payer MEDICARE, OTHER ==
[2021-01-19 19:07] VITALS: TEMP 97.8
--- NOTE | 2021-01-19 19:41 | ED ---
General Adult HPI - General Chief complaint: Recheck/Abnormal Lab/Rx Stated complaint: Abnormal labs, sent by Time Seen by Provider: 01/19/21 19:13 Source: patient Mode of arrival: EMS Limitations: no limitations - History of Present Illness Initial comments: Dictation was produced using [employer] dictation software. please excuse any grammatical, word or spelling errors. Chief Complaint: 65-year-old female told by senior engineering team leader come to the emergency department for GFR of 26 History of Present Illness: 65-year-old female she had an phone appointment with one of our kidney doctors, Dr. Puga. She was instructed to be a blood work today. She was called after the blood work was done and was instructed to come to the emergency department for admission. She was told G Ortiz 26. She has been having worsening renal function for the last several months. Patient states that she is holding a lot of water weight. She reports that over the last several months she's gained 50 pounds she concludes is water weight. Patient denies any fever. She does have chronic back pain. The ROS documented in this emergency department record has been reviewed and confirmed by me. Those systems with pertinent positive or negative responses have been documented in the HPI. All other systems are other negative and/or noncontributory. PHYSICAL EXAM: General Impression: Alert and oriented x3, not in acute distress HEENT: Normocephalic atraumatic, extra-ocular movements intact, pupils equal and reactive to light bilaterally, mucous membranes moist. Cardiovascular: Heart regular rate and rhythm Chest: Able to complete full sentences, no retractions, no tachypnea Abdomen: abdomen soft, non-tender, non-distended, no organomegaly Musculoskeletal: Pulses present and equal in all extremities, no peripheral edema Motor: no focal deficits noted Neurological: CN II-XII grossly intact, no focal motor or sensory deficits noted Skin: Intact with no visualized rashes Psych: Normal affect and mood ED course: 65-year-old female presents to the emergency department for abnormal lab values. She is told she has a GFR of 26. She reports that her senior engineering team leader instructed her to come to the emergency room. vital signs upon arrival are within acceptable limits. Patient is in no acute distress. Laboratory evaluation obtained. CBC unremarkable. Metabolic panel is normal. Urinalysis is negative. Patient creatinine is 1.44. Her GI for is 38. She has a normal BUN. Patient's reevaluated at bedside at 8:47 PM found to be in stable medical condition. No concern for acute kidney injury at this time. Labs were unremarkable. Results were discussed with patient. She'll be discharge. Patient is not satisfied with her current PCP. Patient given referral to Dr. Nguyen - Related Data Home Medications Medication Instructions Recorded Confirmed L.acidoph,Paracasei, B.lactis 1 tab PO DAILY 12/21/15 07/30/17 [Probiotic] cloNIDine HCL [Catapres] 0.1 mg PO BID 12/21/15 07/30/17 Levothyroxine Sodium [Synthroid] 75 mcg PO DAILY 01/08/16 07/30/17 Multivitamins, Thera [Multivitamin] 1 tab PO DAILY 01/08/16 07/30/17 hydrOXYzine HCL [Atarax] 25 mg PO DIRECTED PRN 01/08/16 07/30/17 clonazePAM [KlonoPIN] 1 mg PO TID 03/03/17 07/30/17 Methadone HCl [Methadone Intensol] 72 mg PO DAILY 07/30/17 Potassium Chloride [K-Tab ER] 20 meq PO DAILY 07/30/17 Sertraline [Zoloft] 100 mg PO DAILY 07/30/17 Spironolactone [Aldactone] 25 mg PO DAILY 07/30/17 Previous Rx's Medication Instructions Recorded Ibuprofen [Motrin] 600 mg PO Q8HR PRN 7 Days #21 tab 02/19/18 Allergies Allergy/AdvReac Type Severity Reaction Status Date / Time No Known Allergies Allergy Verified 01/19/21 19:07 Review of Systems ROS Statement: Those systems with pertinent positive or pertinent negative responses have been documented in the HPI. ROS Other: All systems not noted in ROS Statement are negative. Past Medical History Past Medical History: CVA/TIA, GERD/Reflux, Hypertension, Memory Impairment, Thyroid Disorder Additional Past Medical History / Comment(s): STATES HAD HEP C-"TOOK SOME MEDICATION AND NO LONGER HAS". TINNITUS. TIA 2012. CHRONIC BACK PAIN. 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 COLONOSCOPY. BILAT CATARACT SX Past Anesthesia/Blood Transfusion Reactions: Blood Transfusion Reaction Additional Past Anesthesia/Blood Transfusion Reaction / Comment(s): contracted hep c from blood transfusion 1976 Past Psychological History: Anxiety, Depression Smoking Status: Current every day smoker Past Alcohol Use History: None Reported Past Drug Use History: None Reported - Past Family History Mother Family Medical History: Cancer General Exam Limitations: no limitations Course Vital Signs 01/19/21 01/19/21 19:04 20:06 Temperature 97.8 F Pulse Rate 83 82 Respiratory 18 16 Rate Blood Pressure 123/71 128/94 O2 Sat by Pulse 96 96 Oximetry Medical Decision Making - Lab Data Result diagrams: 01/19/21 19:41 01/19/21 19:41 Lab Results 01/19/21 01/19/21 01/19/21 Range/Units 19:41 19:41 19:41 WBC 5.5 (3.8-10.6) k/uL RBC 4.30 (3.80-5.40) m/uL Hgb 12.1 (11.4-16.0) gm/dL Hct 37.5 (34.0-46.0) % MCV 87.2 (80.0-100.0) fL MCH 28.1 (25.0-35.0) pg MCHC 32.2 (31.0-37.0) g/dL RDW 15.3 (11.5-15.5) % Plt Count 231 (150-450) k/uL MPV 8.0 Neutrophils % 64 % Lymphocytes % 25 % Monocytes % 5 % Eosinophils % 4 % Basophils % 0 % Neutrophils # 3.5 (1.3-7.7) k/uL Lymphocytes # 1.4 (1.0-4.8) k/uL Monocytes # 0.3 (0-1.0) k/uL Eosinophils # 0.2 (0-0.7) k/uL Basophils # 0.0 (0-0.2) k/uL Sodium 140 (137-145) mmol/L Potassium 3.8 (3.5-5.1) mmol/L Chloride 101 (98-107) mmol/L Carbon Dioxide 30 (22-30) mmol/L Anion Gap 9 mmol/L BUN 15 (7-17) mg/dL Creatinine 1.44 H (0.52-1.04) mg/dL Est GFR (CKD-EPI)AfAm 44 (>60 ml/min/1.73 sqM) Est GFR (CKD-EPI)NonAf 38 (>60 ml/min/1.73 sqM) Glucose 81 (74-99) mg/dL Calcium 9.2 (8.4-10.2) mg/dL Magnesium 1.9 (1.6-2.3) mg/dL Urine Color Yellow Urine Appearance Clear (Clear) Urine pH 6.0 (5.0-8.0) Ur Specific [place] 1.022 (1.001-1.035) Urine Protein Negative (Negative) Urine Glucose (UA) Negative (Negative) Urine Ketones Negative (Negative) Urine Blood Negative (Negative) Urine Nitrite Negative (Negative) Urine Bilirubin Negative (Negative) Urine Urobilinogen <2.0 (<2.0) mg/dL Ur Leukocyte Esterase Small H (Negative) Urine RBC 1 (0-5) /hpf Urine WBC 1 (0-5) /hpf Ur Squamous Epith Cells 1 (0-4) /hpf Hyaline Casts 3 H (0-2) /lpf Disposition Clinical Impression: Abnormal laboratory test Disposition: HOME SELF-CARE Condition: Good Instructions (If sedation given, give patient instructions): Leg Edema (ED) Is patient prescribed a controlled substance at d/c from ED?: No Referrals: Madeline Nguyen MD [STAFF PHYSICIAN] - 1-2 days
[2021-01-19 20:07] LABS: Basophils % (A) 0 %; Eosinophils # (A) 0.2 k/uL (0-0.7); Eosinophils % (A) 4 %; HCT 37.5 % (34.0-46.0); HGB 12.1 gm/dL (11.4-16.0); Lymphocytes # (A) 1.4 k/uL (1.0-4.8); Lymphocytes % (A) 25 %; MCH 28.1 pg (25.0-35.0); MCHC 32.2 g/dL (31.0-37.0); MCV 87.2 fL (80.0-100.0); Monocytes # (A) 0.3 k/uL (0-1.0); Monocytes % (A) 5 %; Neutrophils # (A) 3.5 k/uL (1.3-7.7); Neutrophils % (A) 64 %; Platelet Count 231 k/uL (150-450); RDW 15.3 % (11.5-15.5); WBC 5.5 k/uL (3.8-10.6)
[2021-01-19 20:15] LABS: Calcium 9.2 mg/dL (8.4-10.2); Magnesium 1.9 mg/dL (1.6-2.3); Potassium 3.8 mmol/L (3.5-5.1)
[2021-01-19 20:36] VITALS: RESP 16
[2021-01-19 20:45] LABS: Appearance,Urine Clear (Clear); Bilirubin,Urine Negative (Negative); Blood,Urine Negative (Negative); Color,Urine Yellow; Glucose,Urine (UA) Negative (Negative); Hyaline Casts,Urine 3 /lpf (0-2); Ketones,Urine Negative (Negative); Leukocyte Esterase,Urine Small (Negative); Nitrite,Urine Negative (Negative); Protein,Urine Negative (Negative); RBC,Urine 1 /hpf (0-5); Specific Gravity,Urine 1.022 (1.001-1.035); Squamous Epithelial Cell,Urine 1 /hpf (0-4); Urobilinogen,Urine <2.0 mg/dL (<2.0); WBC,Urine 1 /hpf (0-5)
[2021-01-19 21:32] VITALS: BP 146/108; PULSE 83
== END 2021-01-19 21:32 | disposition home or self-care (01) ==
LOC: EC 18:55
DX: R79.9 Abnormal finding of blood chemistry, unspecified (principal); F32.9 Major depressive disorder, single episode, unspecified; F41.9 Anxiety disorder, unspecified; I10 Essential (primary) hypertension; K21.9 Gastro-esophageal reflux disease without esophagitis; F17.200 Nicotine dependence, unspecified, uncomplicated; Z86.73 Personal history of transient ischemic attack (TIA), and cerebral infarction without residual deficits
CPT/HCPCS: 36415; 51798; 80048; 81001; 83735; 85025; 99283

== ENCOUNTER → 2021-07-06 | Outpatient (CLI) | payer MEDICARE, OTHER ==
--- NOTE | 2021-07-06 12:06 | US ---
EXAMINATION TYPE: US thyroid st tissue head/neck DATE OF EXAM: 07/06/2021 COMPARISON: NONE CLINICAL HISTORY: neck pain M54.2, R22.1 Neck swelling. Left neck mass for the past 4-5 months, patie nt states changes in size Left Parotid gland seen in area of concern, no mass seen Right Parotid gland 4.1 x 2.5 x 1.5 cm Left Parotid gland 3.8 x 3.1x 1.9 cm Bilateral neck scanned, no evidence of lymphadenopathy. Lymph nodes seen right neck 1.3 x 1.0 x 0.6 cm No mass seen left neck Bilateral parotid glands are symmetric in appearance and within normal limits in size. Left parotid g land corresponds to level of palpable abnormality. No suspicious solid or cystic mass or abnormal ad enopathy. IMPRESSION: As above
== END | disposition home or self-care (01) ==
LOC: RADUSWWP 10:52
PROVIDERS: ATTEND Family Medicine
DX: M54.2 Cervicalgia (principal); R22.1 Localized swelling, mass and lump, neck
CPT/HCPCS: 76536

== ENCOUNTER → 2022-02-06 | Outpatient (CLI) | payer MEDICARE, OTHER ==
[2022-02-06 22:54] LABS: Basophils # (A) 0.03 X 10*3/uL (0.00-0.10); Basophils % (A) 0.7 %; Eosinophils # (A) 0.14 X 10*3/uL (0.04-0.35); Eosinophils % (A) 3.2 %; HCT 37.8 % (37.2-46.3); HGB 11.8 g/dL (12.0-15.0); Immature Grans, Automated 0.5 %; Lymphocytes # (A) 1.35 X 10*3/uL (0.90-5.00); Lymphocytes % (A) 31.3 %; MCH 27.7 pg (27.0-32.0); MCHC 31.2 g/dL (32.0-37.0); MCV 88.7 fL (80.0-97.0); Mean Platelet Volume 11.9 fL (9.5-12.2); Monocytes # (A) 0.28 X 10*3/uL (0.20-1.00); Monocytes % (A) 6.5 %; NRBC Per 100 WBC 0 /100 WBCS (0.0-0.0); Neutrophils % (A) 57.8 %; Platelet Count 167 X 10*3/uL (140-440); RBC 4.26 X 10*6/uL (4.10-5.20); RDW 13.9 % (11.5-14.5); WBC 4.32 X 10*3/uL (4.50-10.00)
[2022-02-06 23:22] LABS: African American GFR (CKD) 41.1 (60.0-200.0); Albumin 4.3 g/dL (3.8-4.9); Albumin/Globulin Ratio 1.53 (1.60-3.17); Anion Gap 12.9 mmol/L (10.00-18.00); BUN/Creat Ratio 10.73 Ratio (12.00-20.00); Blood Urea Nitrogen 16.1 mg/dL (9.0-27.0); Calcium 8.9 mg/dL (8.7-10.3); Carbon Dioxide 24.9 mmol/L (20.0-27.5); Globulin 2.8 g/dL (1.6-3.3); Non-African American GFR(CKD) 35.4 (60.0-200.0); Potassium 3.8 mmol/L (3.5-5.5); Total Bilirubin 0.3 mg/dL (0.30-1.20); Total Protein 7.1 g/dL (6.2-8.2)
== END | disposition home or self-care (01) ==
LOC: LABWHC1 16:32
PROVIDERS: ATTEND Internal Medicine Nephrology
DX: N18.4 Chronic kidney disease, stage 4 (severe) (principal); R56.9 Unspecified convulsions; M81.8 Other osteoporosis without current pathological fracture; B17.10 Acute hepatitis C without hepatic coma; I67.9 Cerebrovascular disease, unspecified
CPT/HCPCS: 36415; 80053; 85025; 86038; 86160; 86800

== ENCOUNTER → 2022-04-16 | Outpatient (CLI) | payer MEDICARE, OTHER ==
[2022-04-17 01:20] LABS: African American GFR (CKD) 44.6 (60.0-200.0); Anion Gap 10.3 mmol/L (10.00-18.00); BUN/Creat Ratio 13.64 Ratio (12.00-20.00); Blood Urea Nitrogen 19.1 mg/dL (9.0-27.0); Calcium 9.2 mg/dL (8.7-10.3); Carbon Dioxide 31.7 mmol/L (20.0-27.5); Non-African American GFR(CKD) 38.5 (60.0-200.0); Potassium 3.5 mmol/L (3.5-5.5)
== END | disposition home or self-care (01) ==
LOC: LABWHC1 16:01
PROVIDERS: ATTEND Internal Medicine Nephrology
DX: N18.4 Chronic kidney disease, stage 4 (severe) (principal); I10 Essential (primary) hypertension; B17.10 Acute hepatitis C without hepatic coma
CPT/HCPCS: 36415; 80048

== ENCOUNTER 2022-10-22 11:44 | Emergency (ER) | payer MEDICARE, OTHER ==
[2022-10-22 11:58] VITALS: TEMP 98.5
[2022-10-22] MEDS ORDERED: LORazepam 2 MG/ML INJ IV STA (12:20)
--- NOTE | 2022-10-22 12:24 | ED ---
General Adult HPI - General Chief complaint: Shortness of Breath Stated complaint: trouble swallowing Time Seen by Provider: 10/22/22 11:58 Source: patient, RN notes reviewed, old records reviewed Mode of arrival: wheelchair Limitations: no limitations - History of Present Illness Initial comments: This is a 67-year-old female with past medical history significant for stroke and high blood pressure. Patient comes in very dramatic in stating that her mother had cancer in the lymph nodes so she and she says she's had swollen lymph nodes for 6 months and has been difficult for her to swallow and she says he needs become worse where she can't even get up any of the saliva in her throat. Patient also states she's had a hard time breathing as of last night she complains of a sore throat and chest pain. Patient denies any fever chills. Patient denies any headache or lightheadedness. Patient denies any trauma. After labs were all ordered and x-rays and CAT scans were ordered patient told the nurse that this all worsened last night when she swallowed a piece of meat and was unable to go all the way down and patient states this happens quite often but usually she can throw up and it'll come up. - Related Data Home Medications Medication Instructions Recorded Confirmed cloNIDine HCL [Catapres] 0.1 mg PO BID 12/21/15 01/19/21 Levothyroxine Sodium [Synthroid] 75 mcg PO DAILY 01/08/16 01/19/21 Methadone HCl [Methadone Intensol] 79 mg PO DAILY 07/30/17 01/19/21 Atorvastatin Calcium [Lipitor] 40 mg PO DAILY 01/19/21 01/19/21 Furosemide [Lasix] 20 mg PO DAILY 01/19/21 01/19/21 Gabapentin 600 mg PO TID 01/19/21 01/19/21 Pantoprazole [Protonix] 40 mg PO DAILY 01/19/21 01/19/21 allopurinoL [Zyloprim] 100 mg PO DAILY 01/19/21 01/19/21 busPIRone HCL 15 mg PO BID 01/19/21 01/19/21 calcitrioL [Rocaltrol] 0.25 mcg PO MOWEFR 01/19/21 01/19/21 polyethylene glycoL 3350 [Clearlax] 17 gm PO DAILY 01/19/21 01/19/21 Allergies Allergy/AdvReac Type Severity Reaction Status Date / Time No Known Allergies Allergy Verified 01/19/21 21:11 Review of Systems ROS Statement: Those systems with pertinent positive or pertinent negative responses have been documented in the HPI. ROS Other: All systems not noted in ROS Statement are negative. Past Medical History Past Medical History: CVA/TIA, GERD/Reflux, Hypertension, Memory Impairment, Thyroid Disorder Additional Past Medical History / Comment(s): STATES HAD HEP C-"TOOK SOME MEDICATION AND NO LONGER HAS". TINNITUS. TIA 2012. CHRONIC BACK PAIN. CHRONIC BILAT HAND PAIN R/T CRUSH INJURY BY [employer] PRESS History of Any Multi-Drug Resistant Organisms: None Reported Past Surgical History: Section, Orthopedic Surgery Additional Past Surgical History / Comment(s): BILAT HAND SX R/T CRUSH INJURY. COLONOSCOPY. BILAT CATARACT SX Past Anesthesia/Blood Transfusion Reactions: Blood Transfusion Reaction Additional Past Anesthesia/Blood Transfusion Reaction / Comment(s): contracted hep c from blood transfusion 1975 Past Psychological History: Anxiety, Depression Smoking Status: Current every day smoker Past Alcohol Use History: None Reported Past Drug Use History: None Reported - Past Family History Mother Family Medical History: Cancer General Exam - General Exam Comments Initial Comments: GENERAL: Patient is well-developed and well-nourished. Patient is nontoxic and well- hydrated and is in mild distress. ENT: Neck is soft and supple. No significant lymphadenopathy is noted. Oropharynx is clear. Moist mucous membranes. Neck has full range of motion without eliciting any pain. EYES: The sclera were anicteric and conjunctiva were pink and moist. Extraocular movements were intact and pupils were equal round and reactive to light. Eyelids were unremarkable. PULMONARY: Patient is very poor effort when I asked her take deep breaths. Difficult to hear any breath sounds with such poor effort CARDIOVASCULAR: There is a regular rate and rhythm without any murmurs gallops or rubs. ABDOMEN: Soft and nontender with normal bowel sounds. SKIN: Skin is clear with no lesions or rashes and otherwise unremarkable. NEUROLOGIC: Patient is alert and oriented x3. Cranial nerves II through XII are grossly intact. Motor and sensory are also intact. Normal speech, volume and content. Symmetrical smile. MUSCULOSKELETAL: Normal extremities with adequate strength and full range of motion. 6640 LYMPHATICS: No significant lymphadenopathy is noted PSYCHIATRIC: Very anxious Limitations: no limitations Course Vital Signs 03/21/23 03/21/23 03/21/23 11:54 11:57 12:30 Temperature 98.5 F Pulse Rate 79 70 Respiratory 24 20 Rate Blood Pressure 137/81 138/76 O2 Sat by Pulse 82 L 90 L 96 Oximetry Medical Decision Making - Medical Decision Making EKG is interpreted by myself shows a sinus rhythm at 71 bpm TX interval and QRS is 90 QT interval 350 QTC is 373. Patient's EKG shows no significant ST segment elevation. Was pt. sent in by a medical professional or institution (, PA, RIG SUPERINTENDENT, urgent care, hospital, or detention...) When possible be specific @ -No Did you speak to anyone other than the patient for history (EMS, parent, family, police, friend...)? What history was obtained from this source @ -No Did you review nursing and triage notes (agree or disagree)? Why? @ -I reviewed and agree with nursing and triage notes Were old charts reviewed (outside hosp., previous admission, EMS record, old EKG, old radiological studies, urgent care reports/EKG's, detention records)? Report findings @ -I reviewed prior laboratory studies as well as prior radiological studies Differential Diagnosis (chest pain, altered mental status, abdominal pain women, abdominal pain men, vaginal bleeding, weakness, fever, dyspnea, syncope, headache, dizziness, GI bleed, back pain, seizure, CVA, palpatations, mental health, musculoskeletal)? @ -Differential Dyspnea: Coronary syndrome, arrhythmia, tamponade, asthma, COPD, pulmonary embolism, pneumonia, pneumothorax, pulmonary effusion, anaphylaxis, diabetic ketoacidosis, flailed chest, pulmonary contusion, diaphragmatic rupture, anemia, neuromuscular, this is not meant to be an all-inclusive list. EKG interpreted by me (3pts min.). @ -As above X-rays interpreted by me (1pt min.). @ -Chest x-ray was interpreted by myself x-ray showed no acute abnormalities CT interpreted by me (1pt min.). @ -None done U/S interpreted by me (1pt. min.). @ -None done What testing was considered but not performed or refused? (CT, X-rays, U/S, labs)? Why? @ -Initially considered CT of the brain because of difficulty swallowing to the patient notified us that she thought a piece of meat stuck since last night. What meds were considered but not given or refused? Why? @ -None Did you discuss the management of the patient with other professionals (professionals i.e. , PA, RIG SUPERINTENDENT, lab, RT, psych nurse, social media strategist, box feeder, teacher, chemistry technical officer, case fitter)? Give summary @ -Spoke with Dr. Granado and she agreed to take the patient to the endoscopy lab to do a scope to see if the patient informed Was smoking cessation discussed for >3mins.? @ -No Was critical care preformed (if so, how long)? @ -No Were there social determinants of health that impacted care today? How? (Homelessness, low income, unemployed, alcoholism, drug addiction, transportation, low edu. Level, literacy, decrease access to med. care, fpc, rehab)? @ -No Was there de-escalation of care discussed even if they declined (Discuss DNR or withdrawal of care, Hospice)? DNR status @ -No What co-morbidities impacted this encounter? (DM, HTN, Smoking, COPD, CAD, Cancer, CVA, ARF, Chemo, Hep., AIDS, mental health diagnosis, sleep apnea, morbid obesity)? @ -None Was patient admitted / discharged? Hospital course, mention meds given and route, prescriptions, significant lab abnormalities, going to OR and other pertinent info. @ -Lab work and chest x-ray done all showed no acute abnormality. Patient was given a half an Ativan and then she calmed down was much better giving us a history. Dr. Granado was contacted she agreed to take the patient to the endoscopy lab Undiagnosed new problem with uncertain prognosis? @ -No Drug Therapy requiring intensive monitoring for toxicity (Heparin, Nitro, Insulin, Cardizem)? @ -No Were any procedures done? @ -No Diagnosis/symptom? @ -Esophageal foreign body Acute, or Chronic, or Acute on Chronic? @ -Acute Uncomplicated (without systemic symptoms) or Complicated (systemic symptoms)? @ -Complicated Side effects of treatment? @ -No Exacerbation, Progression, or Severe Exacerbation? @ -No Poses a threat to life or bodily function? How? (Chest pain, [place], MA, pneumonia, PE, COPD, DKA, ARF, appy, cholecystitis, CVA, Diverticulitis, Homicidal, Suicidal, threat to staff... and all critical care pts) @ -No - Lab Data Result diagrams: 10/22/22 12:34 10/22/22 12:34 Lab Results 10/22/22 10/22/22 10/22/22 Range/Units 12:34 12:34 12:34 WBC 7.5 (3.8-10.6) k/uL RBC 4.62 (3.80-5.40) m/uL Hgb 13.1 (11.4-16.0) gm/dL Hct 38.9 (34.0-46.0) % MCV 84.3 (80.0-100.0) fL MCH 28.3 (25.0-35.0) pg MCHC 33.6 (31.0-37.0) g/dL RDW 12.9 (11.5-15.5) % Plt Count 217 (150-450) k/uL MPV 8.3 Neutrophils % 70 % Lymphocytes % 21 % Monocytes % 4 % Eosinophils % 2 % Basophils % 0 % Neutrophils # 5.2 (1.3-7.7) k/uL Lymphocytes # 1.6 (1.0-4.8) k/uL Monocytes # 0.3 (0-1.0) k/uL Eosinophils # 0.2 (0-0.7) k/uL Basophils # 0.0 (0-0.2) k/uL PT 10.0 (9.0-12.0) sec INR 0.9 (<1.2) APTT 22.8 (22.0-30.0) sec Sodium 141 (137-145) mmol/L Potassium 3.5 (3.5-5.1) mmol/L Chloride 102 (98-107) mmol/L Carbon Dioxide 28 (22-30) mmol/L Anion Gap 11 mmol/L BUN 21 H (7-17) mg/dL Creatinine 1.54 H (0.52-1.04) mg/dL Est GFR (CKD-EPI)AfAm 40 (>60 ml/min/1.73 sqM) Est GFR (CKD-EPI)NonAf 34 (>60 ml/min/1.73 sqM) Glucose 85 (74-99) mg/dL Plasma Lactic Acid Artem (0.7-2.0) mmol/L Calcium 9.2 (8.4-10.2) mg/dL Magnesium 2.1 (1.6-2.3) mg/dL Total Bilirubin 0.6 (0.2-1.3) mg/dL AST 30 (14-36) U/L ALT 18 (4-34) U/L Alkaline Phosphatase 124 (38-126) U/L Troponin I (0.000-0.034) ng/mL Total Protein 8.3 H (6.3-8.2) g/dL Albumin 4.7 (3.5-5.0) g/dL Group A Strep (PCR) (Not Detectd) 10/22/22 10/22/22 10/22/22 Range/Units 12:34 12:34 12:34 WBC (3.8-10.6) k/uL RBC (3.80-5.40) m/uL Hgb (11.4-16.0) gm/dL Hct (34.0-46.0) % MCV (80.0-100.0) fL MCH (25.0-35.0) pg MCHC (31.0-37.0) g/dL RDW (11.5-15.5) % Plt Count (150-450) k/uL MPV Neutrophils % % Lymphocytes % % Monocytes % % Eosinophils % % Basophils % % Neutrophils # (1.3-7.7) k/uL Lymphocytes # (1.0-4.8) k/uL Monocytes # (0-1.0) k/uL Eosinophils # (0-0.7) k/uL Basophils # (0-0.2) k/uL PT (9.0-12.0) sec INR (<1.2) APTT (22.0-30.0) sec Sodium (137-145) mmol/L Potassium (3.5-5.1) mmol/L Chloride (98-107) mmol/L Carbon Dioxide (22-30) mmol/L Anion Gap mmol/L BUN (7-17) mg/dL Creatinine (0.52-1.04) mg/dL Est GFR (CKD-EPI)AfAm (>60 ml/min/1.73 sqM) Est GFR (CKD-EPI)NonAf (>60 ml/min/1.73 sqM) Glucose (74-99) mg/dL Plasma Lactic Acid Artem 0.9 (0.7-2.0) mmol/L Calcium (8.4-10.2) mg/dL Magnesium (1.6-2.3) mg/dL Total Bilirubin (0.2-1.3) mg/dL AST (14-36) U/L ALT (4-34) U/L Alkaline Phosphatase (38-126) U/L Troponin I <0.012 (0.000-0.034) ng/mL Total Protein (6.3-8.2) g/dL Albumin (3.5-5.0) g/dL Group A Strep (PCR) NOT DETECTED (Not Detectd) Disposition Clinical Impression: Esophageal foreign body Disposition: HOME SELF-CARE Condition: Good Instructions (If sedation given, give patient instructions): Esophageal Foreign Body (ED) Is patient prescribed a controlled substance at d/c from ED?: No Referrals: Kristin Gao MD [REFERRING] - 1-2 days Time of Disposition: 13:33
[2022-10-22 12:44] LABS: Basophils % (A) 0 %; Eosinophils # (A) 0.2 k/uL (0-0.7); Eosinophils % (A) 2 %; HCT 38.9 % (34.0-46.0); HGB 13.1 gm/dL (11.4-16.0); Lymphocytes # (A) 1.6 k/uL (1.0-4.8); Lymphocytes % (A) 21 %; MCH 28.3 pg (25.0-35.0); MCHC 33.6 g/dL (31.0-37.0); MCV 84.3 fL (80.0-100.0); Mean Platelet Volume 8.3; Monocytes # (A) 0.3 k/uL (0-1.0); Monocytes % (A) 4 %; Neutrophils # (A) 5.2 k/uL (1.3-7.7); Neutrophils % (A) 70 %; Platelet Count 217 k/uL (150-450); RBC 4.62 m/uL (3.80-5.40); RDW 12.9 % (11.5-15.5); WBC 7.5 k/uL (3.8-10.6)
[2022-10-22 13:04] LABS: Albumin 4.7 g/dL (3.5-5.0); Calcium 9.2 mg/dL (8.4-10.2); Magnesium 2.1 mg/dL (1.6-2.3); Potassium 3.5 mmol/L (3.5-5.1); Total Bilirubin 0.6 mg/dL (0.2-1.3); Total Protein 8.3 g/dL (6.3-8.2)
--- NOTE | 2022-10-22 13:12 | XR ---
EXAMINATION TYPE: XR chest 2V DATE OF EXAM: 10/22/2022 1:07 PM COMPARISON: Chest radiographs from 04/16/2013. TECHNIQUE: XR chest 2V Frontal and lateral views of the chest. CLINICAL INDICATION:Female, 67 years old with history of difficulty breathing; FINDINGS: Lungs/Pleura: There is no evidence of pleural effusion, focal consolidation, or pneumothorax. Pulmonary vascularity: Unremarkable. Heart/mediastinum: Cardiomediastinal silhouette is prominent in size. Musculoskeletal: No acute osseous pathology. IMPRESSION: No acute cardiopulmonary disease/process.
[2022-10-22 13:14] LABS: INR 0.9 (<1.2); Partial Thromboplastin Time 22.8 sec (22.0-30.0)
[2022-10-22] MEDS ORDERED: LIDOCAINE 2% INJ 20 MG/ML (2 ML VIAL) ONE (13:33)
[2022-10-22] MEDS ORDERED: PROPOFOL 10 MG/ML 20 ML VIAL IV ONE (13:33)
[2022-10-22] MEDS ORDERED: MIDAZOLAM 2 MG/2 ML VIAL ONE (13:33)
[2022-10-22] MEDS ORDERED: SODIUM CHLORIDE 0.9% 500 ML 500 ML IV ONE (13:50)
--- NOTE | 2022-10-22 13:54 | P.PCN ---
Date of Procedure: 10/22/22 Procedure(s) Performed: BRIEF HISTORY: Patient is a 67-year-old, pleasant, white female in the emergency room with acute food impaction. She was eating reasonably last 7 could not swallow any further. She is been having intermittent dysphagia to solids for the last 6 months duration. He scheduled for an upper endoscopy emergently basis a body retrieval. PROCEDURE PERFORMED: Esophagogastroduodenoscopy with foreign body removal. PREOPERATIVE DIAGNOSIS: Acute food impaction.. IV sedation per anesthesia. PROCEDURE: After informed consent was obtained, the patient was brought into the endoscopy unit. IV sedation was administered by Anesthesia under continuous monitoring. Initially the Olympus GIF-140 video endoscope was inserted into the mouth. Esophagus intubated without any difficulty. In the proximal cervical esophageal just by the upper esophageal sphincter there was a large piece of meat lodged which could not be pushed distally. At this time using the tripod I was able to be the food bolus without any difficulty. At this time the scope was advanced into the mouth and esophagus intubated without any difficulty. It was gradually advanced into the stomach and duodenum and carefully examined. The bulb and the second part of the duodenum appeared normal. The scope at this time was withdrawn to the stomach, adequately insufflated with air, and upon careful examination, mucosa of the antrum, body, cardia and the fundus appeared normal. The scope was then withdrawn into the esophagus. The GE junction was located at 39 cm from the incisors. The esophagus appeared normal. There were no erosions or ulcerations seen. The proximal cervical esophagus was carefully examined and there was some circumferential esophageal Web identified at the site of food impaction with some mucosal erythema noted. the patient tolerated the procedure well. IMPRESSION: 1. Large piece of meat lodged in the Rox[place] cervical esophagus by the upper esophageal sphincter status post removal as described above. 2. Circumferential proximal esophageal Web. RECOMMENDATIONS: The findings of this examination were discussed with the patient . She'll be on a soft diet today. Follow with the office in 2-3 weeks..
[2022-10-22 14:03] VITALS: RESP 16
[2022-10-22 14:34] VITALS: BP 127/81; PULSE 64
[2022-10-22] MEDS ORDERED: IV FLUID CONTINUATION 400 ML IV ONE (14:34)
== END 2022-10-22 15:31 ==
LOC: EC 11:44
DX: T18.108A Unspecified foreign body in esophagus causing other injury, initial encounter (principal); Q39.4 Esophageal web; K21.9 Gastro-esophageal reflux disease without esophagitis; I10 Essential (primary) hypertension; E07.9 Disorder of thyroid, unspecified; F41.9 Anxiety disorder, unspecified; F17.200 Nicotine dependence, unspecified, uncomplicated; Z86.73 Personal history of transient ischemic attack (TIA), and cerebral infarction without residual deficits; Z79.890 Hormone replacement therapy; Z79.899 Other long term (current) drug therapy
CPT/HCPCS: 36415; 93005; 87651; 83880; 80053; 83605; 83735; 84484; 85025; 85610; 85730; 71046; 43247; 99285; 96374; J2250; J2060; J2704; J2001

== ENCOUNTER 2022-12-13 10:58 | Day surgery (SDC) | payer MEDICARE, OTHER ==
[~2022-12-13 10:58] MED LIST: LACTATED RINGERS 1,000 ML IV SCH; LIDOCAINE 1% (10MG/ML) FOR IV START INTRADERMA PRN
[2022-12-13 12:52] VITALS: RESP 16; TEMP 98
[2022-12-13] MEDS ORDERED: LIDOCAINE 2% INJ 20 MG/ML (2 ML VIAL) ONE (13:29)
[2022-12-13] MEDS ORDERED: PROPOFOL 10 MG/ML 20 ML VIAL IV ONE (13:29)
--- NOTE | 2022-12-13 13:50 | P.PCN ---
Date of Procedure: 12/13/22 Procedure(s) Performed: BRIEF HISTORY: Patient is a 67-year-old, pleasant, white female scheduled for an upper endoscopy as a part of evaluation of intermittent dysphagia to solids for the last 6 months duration. She had an episode of food impaction 6 weeks ago for which she underwent an upper endoscopy with foreign body removal in October 2022.. PROCEDURE PERFORMED: Esophagogastroduodenoscopy with biopsy. PREOPERATIVE DIAGNOSIS: Intermittent dysphagia to solids of 6 months duration and recent episode of food impaction. IV sedation per anesthesia. PROCEDURE: After informed consent was obtained, the patient was brought into the endoscopy unit. IV sedation was administered by Anesthesia under continuous monitoring. Initially the Olympus GIF-140 video endoscope was inserted into the mouth. Esophagus intubated without any difficulty. It was gradually advanced into the stomach and duodenum and carefully examined. The bulb and the second part of the duodenum appeared normal. The scope at this time was withdrawn to the stomach, adequately insufflated with air, and upon careful examination, m ucosa of the antrum, body, cardia and the fundus appeared normal. The scope was then withdrawn into the esophagus. Small sliding type hiatal hernia noted. The GE junction was located at 39 cm from the incisors. The esophagus appeared normal. There were no erosions or ulcerations seen. The proximal cervical esophagus did not have any evidence of esophageal Or esophageal stricture. Multiple biopsies were done from the mid and distal esophagus and the patient tolerated the procedure well. IMPRESSION: 1. No evidence of esophagitis or esophageal stricture. 2. Small hiatal hernia. RECOMMENDATIONS: The findings of this examination were discussed with the patient as well as a family. She was advised to follow with the biopsy results. She will be seen in office in 4 weeks.
[2022-12-13 14:18] VITALS: PULSE 57
[2022-12-13 14:33] VITALS: BP 113/66
== END 2022-12-13 14:44 | disposition home or self-care (01) ==
LOC: ORWHC2ENDO 10:58
PROVIDERS: ATTEND Internal Medicine Gastroenterology
DX: K20.0 Eosinophilic esophagitis (principal); K44.9 Diaphragmatic hernia without obstruction or gangrene; I10 Essential (primary) hypertension; F41.9 Anxiety disorder, unspecified; F32.A Depression, unspecified; Z87.891 Personal history of nicotine dependence; E07.9 Disorder of thyroid, unspecified; Z86.73 Personal history of transient ischemic attack (TIA), and cerebral infarction without residual deficits; K21.9 Gastro-esophageal reflux disease without esophagitis; K75.9 Inflammatory liver disease, unspecified; Z79.899 Other long term (current) drug therapy
CPT/HCPCS: 88305; 43239; J2704; J2001

== ENCOUNTER → 2023-01-22 | Outpatient (CLI) | payer MEDICARE, OTHER ==
--- NOTE | 2023-01-22 15:29 | BD ---
EXAMINATION TYPE: Axial Bone Density DATE OF EXAM: 01/22/2023 CLINICAL HISTORY: 67 years old Female. ICD-10 CODE: Z12.31 N95.1 Height: 62 Weight: 152 FRAX RISK QUESTIONS: Family History (Parent hip fracture): no History of Fracture in Adulthood: yes, compression fx Secondary Osteoporosis: yes 1. Type 1 Diabetes: no 2. Hyperthyroidism: no 3. Menopause before 45: yes, age 40 4. Malnutrition: no 5. Chronic liver disease: yes Rheumatoid Arthritis: no Current Tobacco Use: no RISK FACTORS HISTORY OF: Spine Fracture: yes compression When: 2009 Family History of Osteoporosis: no Active: no Diet low in dairy products/other sources of calcium: yes Postmenopausal woman: yes Lost more than 2 inches in height since high school: yes, was 64 Frequent falls: no Poor Health: yes MEDICATIONS: Thyroid Medications: not at this time Additional Medications: yes HBP meds, seizure meds, depression meds, Lasix Additional History: yes TIA, cirrhosis, EXAM MEASUREMENTS: Bone mineral densitometry was performed using the Sunglass System. Bone mineral density as measured about the Lumbar spine is: ----- L1-L4(G/cm2): 1.050 T Score Values are as follows: ----- L1: -2.7 ----- L2: -1.5 ----- L3: -0.6 ----- L4: -0.3 ----- L1-L4: -1.1 Z Score Values are as follows: ----- L1: -1.5 ----- L2: -0.3 ----- L3: 0.6 ----- L4: 0.9 ----- L1-L4: 0.1 Bone mineral density has: Decreased -5.0% since study of: 01/14/2017 Bone mineral density about the R hip (g/cm2): 0.767 Bone mineral density about the L hip (g/cm2): 0.872 T Score values are as follows: -----R Neck: -2.5 -----L Neck: -2.0 -----R Total: -1.9 -----L Total: -1.1 Z Score values are as follows: -----R Neck: -1.2 -----L Neck: -0.7 -----R Total: -0.9 -----L Total: 0.0 Bone mineral density has: Decreased -14.3% since study of: 01/14/2017 FRAX%s: The graph provided illustrates a 21.9% chance for a major osteoporotic fx and a 5.2% chance f or the hips probability for fx in 10 years time. IMPRESSION: Osteopenia (T Score between -2.5 and -1). There is slightly increased risk of fracture and the patient may be considered for treatment. Re-Screen 2-5 years. NOTE: T-SCORE=SD OF THE YOUNG ADULT MEAN.
--- NOTE | 2023-01-23 20:34 | MM ---
Reason for Exam: Screening (asymptomatic). Last mammogram was performed 3 year(s) and 0 month(s) ago. Patient History: Menarche at age 12. First Full-Term at age 20. Postmenopausal. Estrogen for 3 months from age 49 until age 49. Mother had breast cancer, age 50. Risk Values: Tessa 5 year model risk: 3.3%. NCI Lifetime model risk: 10.4%. Prior Study Comparison: 09/28/2015 Bilateral Diagnostic Mammogram, [facility]. 09/17/2016 Bilateral Diagnostic Mammogram, [facility]. 01/04/2020 Bilateral Screening Mammogram, [facility]. Tissue Density: There are scattered fibroglandular densities. Findings: Analyzed By CAD. Benign bilateral vascular calcifications. Chronic nodularity upper outer quadrant right breast. There is no suspicious group of microcalcifications or new suspicious mass in either breast. Overall Assessment: Benign, BI-RAD 2 Management: Screening Mammogram of both breasts in 1 year. See note below in regards to patient's increased 5 year Tessa score. Patient should continue monthly self-breast exams. A clinical breast exam by your physician is recommended on an annual basis. This exam should not preclude additional follow-up of suspicious palpable abnormalities. Note on Tessa scores and lifetime risk: 1. A Tessa score greater than 3% is considered moderate risk. If this is the case, consider specialist referral to assess eligibility for a risk reducing agent. 2. If overall lifetime risk for the development of breast cancer is 20% or higher, the patient may qualify for future screening with alternating mammogram and breast MRI. Electronically signed and approved by: Kael Pino M.D. Radiologist
== END | disposition home or self-care (01) ==
LOC: RADMAMWWP 10:09
PROVIDERS: ATTEND Family Medicine
DX: Z12.31 Encounter for screening mammogram for malignant neoplasm of breast (principal); M81.0 Age-related osteoporosis without current pathological fracture; M85.89 Other specified disorders of bone density and structure, multiple sites; Z78.0 Asymptomatic menopausal state; Z80.3 Family history of malignant neoplasm of breast
CPT/HCPCS: 77063; 77067; 77080

== ENCOUNTER → 2024-08-17 | Outpatient (CLI) | payer MEDICARE, OTHER ==
--- NOTE | 2024-08-17 14:05 | US ---
EXAMINATION TYPE: US liver DATE OF EXAM: 08/17/2024 COMPARISON: US 2016, CT 2015 CLINICAL INDICATION: Female, 69 years old with history of Z86.19 INFECTIOUS AND PARASITIC DIS; TECHNIQUE: Grayscale and color Doppler imaging of the right upper quadrant was performed. FINDINGS: EXAM MEASUREMENTS: Liver Length: 16.6 cm. Normal less than 15.5 cm. Gallbladder Wall: 0.2 cm CBD: 0.8 cm Right Kidney: 8.2 x 3.3 x 3.8 cm Pancreas: obscured by overlying midline bowel gas Liver: course echotexture compatible with mild fatty infiltration. Gallbladder: wnl Evidence for sonographic Chua's sign: no CBD: dilated Right Kidney: small in size, 1.3cm hypoechoic area lateral mid pole IMPRESSION: 1. Minimally prominent liver with mild fatty infiltration [facility], , 08/17/2024 2:03 PM
== END | disposition home or self-care (01) ==
LOC: RADUSWWP 10:39
PROVIDERS: ATTEND Internal Medicine Gastroenterology
DX: Z86.19 Personal history of other infectious and parasitic diseases (principal); K76.0 Fatty (change of) liver, not elsewhere classified
CPT/HCPCS: 76705

== ENCOUNTER → 2024-08-25 | Outpatient (CLI) | payer MEDICARE, OTHER ==
--- NOTE | 2024-08-25 11:22 | MM ---
Reason for Exam: Clinical finding. Last mammogram was performed 1 year(s) and 7 month(s) ago. Indicated Problems: Pain of the left side (Global) for 3 Week(s). Patient History: Menarche at age 12. First Full-Term at age 20. Postmenopausal. Estrogen for 3 months from age 49 until age 49. Mother had breast cancer, age 50. Risk Values: Tessa 5 year model risk: 3.3%. NCI Lifetime model risk: 9.5%. Prior Study Comparison: 11/18/2008 Bilateral Diagnostic Mammogram, [facility]. 11/20/2009 Bilateral Diagnostic Mammogram, [facility]. 11/26/2010 Bilateral Screening Mammogram, [facility] 11/29/2011 Bilateral Screening Mammogram, [facility]. 12/23/2012 Bilateral Screening Mammogram, [facility]. 09/28/2015 Bilateral Diagnostic Mammogram, [facility]. 09/28/2015 Bilateral Diagnostic Ultrasound, [facility]. 11/21/2015 Bilateral Diagnostic Ultrasound, [facility]. 09/17/2016 Bilateral Diagnostic Mammogram, [facility]. 01/04/2020 Bilateral Screening Mammogram, [facility]. 01/22/2023 Bilateral MG 3D screening mammo w/cad, [facility]. Tissue Density: There are scattered areas of fibroglandular density. Findings: Analyzed By CAD. Benign bilateral secretory and vascular calcifications. Unchanged small intramammary lymph node lateral right breast. No significant change from prior exams. Overall Assessment: Incomplete: need additional imaging evaluation, BI-RAD 0 Management: Diagnostic Breast Ultrasound of the left breast. For breast pain. See note below in regards to patient's increased 5 year Tessa score. Note on Tessa scores and lifetime risk: 1. A Tessa score greater than 3% is considered moderate risk. If this is the case, consider specialist referral to assess eligibility for a risk reducing agent. 2. If overall lifetime risk for the development of breast cancer is 20% or higher, the patient may qualify for future screening with alternating mammogram and breast MRI. [facility], , 08/25/2024 11:19 AM. Electronically signed and approved by: Kael Pino M.D. Radiologist
--- NOTE | 2024-08-25 12:08 | USB ---
Reason for Exam: Clinical finding. Patient History: Menarche at age 12. First Full-Term at age 20. Postmenopausal. Estrogen for 3 months from age 49 until age 49. Mother had breast cancer, age 50. Risk Values: Tessa 5 year model risk: 3.3%. NCI Lifetime model risk: 9.5%. Technique: Method: Whole Breast Handheld. Prior Study Comparison: 09/17/2016 Bilateral Diagnostic Mammogram, [facility]. 01/04/2020 Bilateral Screening Mammogram, [facility]. 01/22/2023 Bilateral MG 3D screening mammo w/cad, [facility]. Findings: The whole breast of the left breast, the axilla of the left breast and the retroareolar of the left breast were scanned. A complete US of all four quadrants of the breast common axilla, and retro-areolar region were reviewed. There is a small echogenic focus embedded within a fat lobule at the 1:00 position, 4 cm from the nipple measuring 3 mm. Likely a tiny incidental lipoma. Otherwise, no solid or cystic masses are identified. No axillary adenopathy. Overall Assessment: Benign, BI-RAD 2 Management: Screening Mammogram of both breasts in 1 year. Further clinical management of patient's left breast pain. A clinical breast exam by your physician is recommended on an annual basis and results should be correlated with mammographic findings. This exam should not preclude additional follow-up of suspicious palpable abnormalities. Results were given to the patient verbally at the time of exam. Note on Tessa scores and lifetime risk: 1. A Tessa score greater than 3% is considered moderate risk. If this is the case, consider specialist referral to assess eligibility for a risk reducing agent. 2. If overall lifetime risk for the development of breast cancer is 20% or higher, the patient may qualify for future screening with alternating mammogram and breast MRI. [facility], , 08/25/2024 12:05 PM. Electronically signed and approved by: Kael Pino M.D. Radiologist
== END | disposition home or self-care (01) ==
LOC: RADMAMWWP 10:38
PROVIDERS: ATTEND Family Medicine
DX: N63.0 Unspecified lump in unspecified breast (principal); Z78.0 Asymptomatic menopausal state; Z80.3 Family history of malignant neoplasm of breast; R92.323 Mammographic fibroglandular density, bilateral breasts; R92.2 Inconclusive mammogram
CPT/HCPCS: 77066; 76641; G0279; 77062